=== PATIENT | male | born 2000 | race Asian ===

== ENCOUNTER 2023-01-21 01:58 | Emergency (ER) | payer OTHER, SELFPAY ==
[2023-01-21 02:02] VITALS: BP 148/77; PULSE 72; RESP 18; TEMP 36.6; O2SAT 98; BMI 21.3
--- NOTE | 2023-01-21 02:26 | ED.NURSE ---
Bacitracin and bandaids applied to fingers.
--- NOTE | 2023-01-21 21:07 | ED.WOUNDLAC ---
HPI - Wound/Laceration General Chief Complaint: Laceration/Wound Stated Complaint: Finger injury Time Seen by Provider: 01/21/23 02:04 History of Present Illness HPI narrative: Patient presents via [facility] with a finger injury. Patient reports he got his fingers stuck in between 2 conveyor belts. Abrasions/ lacerations to right pinky finger, left pointer, middle and ring fingers near the nail beds. Unknown tetanus status. 22-year-old college student had an drinking with friends. Seem like a good idea to perhaps challenge placing hands into fan belt/enoc system. Sounds like this was not associated with an automobile but somewhere on campus? Managed to get his finger stuck and self extricate. Were planning to drive him in but was concerned and decided take an ambulance. I ask whether not he would want any anesthesia further evaluation but he is concerned about cost and feels he can manage. No other injuries were sustained other than to hands. Related Data Home Medications Medication Instructions Recorded Confirmed No Known Home Medications 01/21/23 01/21/23 Allergies Allergy/AdvReac Type Severity Reaction Status Date / Time No Known Drug Allergies Allergy Verified 01/21/23 02:00 Review of Systems Status of ROS: Reports: 6 or more systems reviewed and unremarkable except as noted in History and below [facility] Social History Smoking Status: Current every day smoker What tobacco products do you use: cigarettes Second hand tobacco smoke exposure: No How often do you have a drink containing alcohol: 2-3 times a week How often do you have six or more drinks on one occasion: Never AUDIT-C Alcohol total score: 3 Non-prescribed substance use: marijuana (any form) service: No Exam Narrative: Exam Narrative: Very pleasant. NAD. Favoring his hands. They have been cleaned up the time I am seeing him. Breathing easily. Right 5th finger has partial dermal erosion of the skin just proximal to the nail. Similar findings on the left index and middle finger. There is a small subungual hematoma that is not terribly painful under the proximal nail bed of the 4th finger of the left hand. Oozing blood lightly areas of injury is noted. Some light staining of presumably black rubber belt on palmar surface distal fingers. Fingers do not appear to have been terribly crushed more just pinch/trapped. Const: Vital Signs, click to edit/add: Vital Signs - 24 hr 01/21/23 02:02 Temperature 97.8 F Pulse Rate [Pulse Oximeter] 72 Respiratory Rate 18 Blood Pressure [Le ft Upper Arm] 148/77 H Pulse Oximetry 98 Oxygen Delivery Me thod Room Air Documenting provider has reviewed patient's vital signs: yes Course Vital Signs Vital signs: Initial Vital Signs Temperature 97.8 F 01/21/23 02:02 Temperature Source Temporal Artery Scan 01/21/23 02:02 Pulse Rate 72 01/21/23 02:02 Respiratory Rate 18 01/21/23 02:02 Blood Pressure 148/77 H 01/21/23 02:02 Blood Pressure Mean 100 01/21/23 02:02 Pulse Oximetry 98 01/21/23 02:02 Oxygen Delivery Method Room Air 01/21/23 02:02 Vital Signs Temperature 97.8 F 01/21/23 02:02 Pulse Rate 72 01/21/23 02:02 Respiratory Rate 18 01/21/23 02:02 Blood Pressure 148/77 H 01/21/23 02:02 Pulse Oximetry 98 01/21/23 02:02 Oxygen Delivery Method Room Air 01/21/23 02:02 Temperature 97.8 F 01/21/23 02:02 Pulse Rate 72 01/21/23 02:02 Respiratory Rate 18 01/21/23 02:02 Blood Pressure 148/77 H 01/21/23 02:02 Pulse Oximetry 98 01/21/23 02:02 Oxygen Delivery Method Room Air 01/21/23 02:02 MDM - Wound/Laceration MDM Narrative Medical decision making narrative: After cleansing. Examination further of his hands. Slightly tremulous. I he has iris scissors and tweezers to trim away small amount of shredded a tissue at all fingers. Antibiotic ointment and bandages placed. We did discuss trephination of the 4th finger nail bed on the left-hand, but does not feel he is having enough discomfort there to warrant at this time. See patient discharge plan. Discharge Plan Discharge Clinical Impression: Crush injury to finger, Finger abrasion, Subungual hematoma Patient Disposition: Home, Self-Care Condition: Stable Instructions: Abrasion (ED) Additional Instructions: Elevate for comfort. Can take up to 800 mg of ibuprofen or up to 1000 mg of acetaminophen per dose. These can be combined. Alternative to the ibuprofen might be up to 500 mg of naproxen 2 times daily. Antibiotic ointment and Band-Aid for 4-5 days. Discussed trephination of subungual hematoma. Report spreading redness after 2 days, marked increase in pain, purulent drainage, fever. Prescriptions: No Action No Known Home Medications Stand Alone Forms: [employer] Info Instructions
== END 2023-01-21 02:48 | disposition home or self-care (01) ==
LOC: ED 02:36
PROVIDERS: Emergency Provider Family Medicine
DX: S67.196A Crushing injury of right little finger, initial encounter (principal); S67.195A Crushing injury of left ring finger, initial encounter; S67.191A Crushing injury of left index finger, initial encounter; S67.193A Crushing injury of left middle finger, initial encounter; W23.0XXA Caught, crushed, jammed, or pinched between moving objects, initial encounter
CPT/HCPCS: 99283; 99284